=== PATIENT | male | born 1950 | race Caucasian/White ===

== ENCOUNTER 2020-07-11 17:11 | Emergency (ER) | payer OTHER ==
[~2020-07-11] VITALS: Ht 172.7 cm; Wt 78.0 kg
[2020-07-11] MEDS ORDERED: AMBIEN 10 MG TA10 MG PO (17:26)
[2020-07-11] MEDS ORDERED: LISINOPRIL10 MG PO (17:26)
[2020-07-11] MEDS ORDERED: BUPROPION XL300 MG PO (17:27)
[2020-07-11 18:05] LABS: ABSOLUTE BASOPHILS 0.1 thou/uL (0.0-0.2); ABSOLUTE EOSINOPHILS 0.3 thou/uL (0.0-0.7); ABSOLUTE LYMPHOCYTES 1.6 thou/uL (0.8-5.3); ABSOLUTE MONOCYTES 0.8 thou/uL (0.0-1.2); BASOPHILS 1.1 %; EOSINOPHILS 2.7 %; HEMATOCRIT 40.2 % (42.0-52.0); HEMOGLOBIN 13.2 gm/dL (14.0-18.0); LYMPHOCYTES 12.6 %; MCH 29.8 pg (26.0-34.0); MCHC 32.8 g/dL (28.0-37.0); MCV 90.7 fL (80.0-100.0); MONOCYTES 6.1 %; MPV 8.4 fl. (7.2-11.1); NUCLEATED RBCS 0 /100WBC; PLATELET COUNT* 262 thou/uL (150-400); POLYS 77.5 %; RBC 4.43 mil/uL (4.50-6.00); RDW-CV 13.5 % (10.5-14.5); WBC 12.9 thou/uL (4.0-11.0)
[2020-07-11 18:12] LABS: URINE BILIRUBIN NEGATIVE (Negative); URINE BLOOD TRACE (Negative); URINE CLARITY CLEAR; URINE COLOR YELLOW; URINE GLUCOSE-RANDOM NEGATIVE (Negative); URINE KETONES NEGATIVE (Negative); URINE LEUKOCYTES-REFLEX NEGATIVE (Negative); URINE NITRITE-REFLEX NEGATIVE (Negative); URINE PROTEIN NEGATIVE (Negative); URINE SPECIFIC GRAVITY 1.025 (1.005-1.030); URINE UROBILINOGEN 0.2 E.U./dl (0.2-1.0)
[2020-07-11 18:13] LABS: CALCIUM 8.8 mg/dL (8.5-10.1); CREATININE 1.1 mg/dL (0.6-1.3); POTASSIUM 4.6 mmol/L (3.5-5.1)
[2020-07-11 18:17] LABS: PROTIME 10.5 Seconds (9.20-11.50)
[2020-07-11 18:24] LABS: ALBUMIN 3.6 g/dL (3.4-5.0); MAGNESIUM 2.2 mg/dL (1.8-2.4); TOTAL BILIRUBIN 0.3 mg/dL (<0.1-1.0); TOTAL PROTEIN 6.9 g/dL (6.4-8.2)
[2020-07-11 20:25] VITALS: BP 128/72
--- NOTE | 2020-07-13 13:50 | EKG ---
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: : 1950 Requested By: Cammie Addison Order Number: [id number] : Urbano Rich Measurements Intervals [place] Rate: 78 P: 44 DE: 173 QRS: 38 QRSD: 132 T: 11 QT: 404 QTc: 461 Interpretive Statements Sinus rhythm Right bundle branch block Borderline ST elevation, lateral leads No previous ECG available for comparison Electronically Signed On 07-13-2020 13:50:01 CDT by Urbano Rich [email or web address] <ELECTRONICALLY SIGNED> By: Urbano Rich MD, [facility] 07/13/20 1350 1733 1733 Urbano Rich MD, [facility] /EPI
== END 2020-07-11 20:25 | disposition home or self-care (01) ==
LOC: M.ERS 17:11
PROVIDERS: Physician Assistant
DX: R55 Syncope and collapse (principal); R00.2 Palpitations; R51.9 Headache, unspecified; I10 Essential (primary) hypertension; Z88.8 Allergy status to other drugs, medicaments and biological substances